=== PATIENT | male | born 1960 ===

== ENCOUNTER 2019-03-18 17:19 | Emergency (ER) | payer OTHER ==
[~2019-03-18] VITALS: Ht 172.7 cm; Wt 77.1 kg
== END 2019-03-18 19:51 | disposition home or self-care (01) ==
LOC: ER 17:19
DX: S01.82XA Laceration with foreign body of other part of head, initial encounter (principal); W45.8XXA Other foreign body or object entering through skin, initial encounter; Y93.89 Activity, other specified; Y92.89 Other specified places as the place of occurrence of the external cause; Y99.8 Other external cause status